=== PATIENT | female | born 1945 | race Caucasian/White ===

== ENCOUNTER 2016-08-14 15:29 | Emergency (ER) | payer MEDICARE, BC ==
[2016-08-14] MEDS ORDERED: SODIUM CHLORIDE 0.9% 2,000 ML ONE (18:55)
[2016-08-14] MEDS ORDERED: ONDANSETRON 4 MG VIAL ONE (18:55)
== END 2016-08-14 21:31 | disposition home or self-care (01) ==
LOC: ER 15:29
DX: K80.20 Calculus of gallbladder without cholecystitis without obstruction (principal); R11.2 Nausea with vomiting, unspecified; R19.7 Diarrhea, unspecified
CPT/HCPCS: 36415; 74022; 80053; 81001; 83690; 85025; 87077; 87088; 87186; 96361; 96374; 99284; J2405